=== PATIENT | male | born 1995 | race Caucasian/White ===

== ENCOUNTER 2016-10-11 11:40 | Emergency (ER) | payer BC ==
[2016-10-11 11:48] VITALS: BP 133/76
[2016-10-11] MEDS ORDERED: Ibuprofen TAB* 600 MG PO ONE (11:54)
--- NOTE | 2016-10-11 12:00 | UC ---
Throat Pain/Nasal [place] HPI - HPI Summary HPI Summary: sever sore throat x 1 day + fever, chills, body aches, no nasal congestion, no cough - History of Current Complaint Chief Complaint: UCGeneralIllness Stated Complaint: FEVER,SORE THROAT Time Seen by Provider: 10/11/16 11:50 Hx Obtained From: Patient Onset/Duration: Sudden Onset, Lasting Days - 1, Still Present Severity: Severe Cough: None Associated Signs & Symptoms: Positive: Fever. Negative: Wheezing, Hoarseness, Sinus Discomfort, Nasal Discharge, Rash - Allergies/Home Medications Allergies/Adverse Reactions: Allergies Allergy/AdvReac Type Severity Reaction Status Date / Time Penicillins Allergy Anaphylatic Verified 10/11/16 11:48 Shock Home Medications: Home Medications Ibuprofen TAB* [Advil TAB*] 400 mg PO Q8H PRN 10/11/16 [History Confirmed ] PMH/Surg Hx/FS Hx/Imm Hx Previously Healthy: Yes - Surgical History Surgical History: Yes Surgery Procedure, Year, and Place: ingunial hernia surgery bilateral - Family History Known Family History: Negative: Diabetes - Social History Alcohol Use: Occasionally Substance Use Type: None Smoking Status (MU): Never Smoked Tobacco Review of Systems Constitutional: Fever, Chills, Fatigue Skin: Negative Eyes: Negative ENT: Sore Throat Respiratory: Negative Cardiovascular: Negative Gastrointestinal: Negative All Other Systems Reviewed And Are Negative: Yes Physical Exam Triage Information Reviewed: Yes Appearance: Ill-Appearing, Pain Distress Vital Signs: Initial Vital Signs Temp 101.5 F 10/11/16 11:44 Pulse 123 10/11/16 11:44 Resp 16 10/11/16 11:44 BP 133/76 10/11/16 11:44 Pulse Ox 96 10/11/16 11:44 Vital Signs Reviewed: Yes Eye Exam: Normal Eyes: Positive: Conjunctiva Clear ENT Exam: Normal ENT: Positive: Normal ENT inspection, Pharyngeal erythema, Tonsillar exudate. Negative: Nasal congestion, Nasal drainage, TMs normal Neck exam: Normal Neck: Positive: Supple, Nontender, Enlarged Nodes @ Respiratory: Positive: Chest non-tender, Lungs clear, Normal breath sounds, No respiratory distress Cardiovascular: Positive: Tachycardia. Negative: Murmur:Sys:Grade _?_/, Murmur:Dys:Grade _?_/ Abdomen Description: Positive: Nontender, No Organomegaly, Soft. Negative: Distended, Guarding Bowel Sounds: Positive: Present Skin Exam: Normal Throat Pain/Nasal Course/Dx - Differential Dx/Diagnosis Provider Diagnoses: pharyngitis Discharge - Discharge Plan Condition: Stable Disposition: HOME Prescriptions: Azithromycin TAB* [Zithromax TAB (Z-JOZEF) 250 mg #6 tabs] 2 tab PO .TODAY, THEN 1 DAILY #1 jozef predniSONE TAB* [Deltasone TAB*] 40 mg PO DAILY #10 tab Patient Education Materials: Pharyngitis (ED) Referrals: No Primary Care Phys,NOPCP [Primary Care Provider] - Additional Instructions: negative rapid strep , negative rapid influenza will check for mono , will start zpak , call the office in one day , if + [place] , will ask you to stop abx prednisone 4 mg daily for 5 days take tylenol as needed for pain follow up with your pcp on at the urgent care if not better in 5 days
[2016-10-11 19:02] LABS: EBV Response YES
[2016-10-11 19:17] LABS: Mono Internal Control QC Line Present
[2016-10-13 12:01] LABS: EBV Capsid Ag IgG Ab Positive (Negative); EBV Capsid Ag IgM Ab Negative (Negative)
== END 2016-10-11 12:38 | disposition home or self-care (01) ==
LOC: UCCORT 11:40
DX: J02.9 Acute pharyngitis, unspecified (principal); R50.9 Fever, unspecified; M79.1 Myalgia; Z88.0 Allergy status to penicillin
CPT/HCPCS: 36415; 86308; 86664; 86665; 87502; 87651; 99212; A9270-GY; G0463